=== PATIENT | male | born 1995 | race Caucasian/White ===

== ENCOUNTER 2024-08-23 21:58 | Emergency (ER) | payer MEDICAID ==
[~2024-08-23] VITALS: Ht 182.9 cm; Wt 105.6 kg
[2024-08-23 22:01] VITALS: BP 145/98; PULSE 102; RESP 15; O2SAT 99
[2024-08-23 22:51] LABS: MONOTEST NEGATIVE (Neg)
[2024-08-23 23:20] LABS: STREP A SCREEN POSITIVE (Neg)
[2024-08-23 23:38] VITALS: TEMP 98.9
[2024-08-24] MEDS: PENICILLIN G BENZATHINE 2,400,000 UNIT/4 ML SYRINGE IM ONE (00:34)
== END 2024-08-24 00:37 | disposition home or self-care (01) ==
LOC: ER 21:59
DX: J02.0 Streptococcal pharyngitis (principal)
CPT/HCPCS: 36415; 86308; 87880; 96372; 99283; J0561

== ENCOUNTER 2024-12-08 08:28 | Emergency (ER) | payer MEDICAID, OTHER ==
[~2024-12-08] VITALS: Ht 182.9 cm; Wt 136.4 kg
[2024-12-08 08:30] VITALS: TEMP 98.8
[2024-12-08] MEDS ORDERED: AMOX-117 PO (09:19)
[2024-12-08] MEDS ORDERED: LIDO20SO16 PO (09:19)
--- NOTE | 2024-12-08 09:19 | Physician Documentation ---
History of Present Illness ~ Chief Complaint: Sore Throat Stated Complaint: SORE THROAT Time Seen by MD: 09:12 Source: patient Mode of Arrival: POV Exam Limitations: no limitations HPI 29-year-old male with sore throat x2 days. Patient has pain with swallowing but no difficulty breathing. No fevers no other associated symptoms Medication Reconciliation Allergies: Coded Allergies: No Known Allergies (Unverified , 12/08/24) Scheduled Amox Tr/Potassium Clavulanate (Augmentin 875-125 Tablet), 1 TAB PO Q12H Lidocaine Hcl (Xylocaine Viscous), 5 ML PO Q2H PRN SORE THROAT Review of Systems All Other Systems at this time: Reviewed and Negative ENT: Reports: see HPI Physical Exam Vital Signs: RN Vital Signs have been reviewed: Yes, Temperature: 98.8, Source: Oral, Heart Rate: 91, Respiratory Rate: 18, BP: 148/84, Pulse Oximetry: 99, Weight: 136.360 Physical Exam General: Alert, no apparent distress. HEENT: PERRL, EOMI, no injection, moist mucous membranes. Pharyngeal erythema uvula swelling and erythema small white patches minimal tonsillar swelling. Anterior cervical lymphadenopathy Neck: Full range of motion. Respiratory: Lungs clear, no respiratory distress. Chest: No accessory muscle use. Cardiovascular: Regular rate and rhythm, no murmurs. Neurologic: Oriented x4. Psychiatric: Normal mood and affect. Skin: Normal color, warm and dry. No edema, no ecchymosis. Progress Results/Orders Results/Orders Vital Signs 12/08/24 12/08/24 08:30 09:55 Temp 98.8 Pulse 91 100 Resp 18 18 B/P (MAP) 148/84 135/94 Pulse Ox 99 98 Medical Decision Making Findings Sore throat x2 days, exudate erythema and adenopathy. 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
[2024-12-08 09:55] VITALS: BP 135/94; PULSE 100; RESP 18; O2SAT 98
== END 2024-12-08 10:00 | disposition home or self-care (01) ==
LOC: ER 08:28
DX: J02.0 Streptococcal pharyngitis (principal)
CPT/HCPCS: 99283

== ENCOUNTER 2025-05-09 00:28 | Emergency (ER) | payer OTHER ==
[~2025-05-09] VITALS: Ht 185.4 cm; Wt 127.0 kg
[~2025-05-09 00:28] MED LIST: LIDO20SO16 PO
[2025-05-09 00:33] VITALS: BP 121/89; PULSE 104; RESP 14; TEMP 98.2; O2SAT 97
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
== END 2025-05-09 03:55 ==
LOC: ER 00:28
DX: Z02.89 Encounter for other administrative examinations (principal); M25.562 Pain in left knee; M25.561 Pain in right knee; V49.9XXA Car occupant (driver) (passenger) injured in unspecified traffic accident, initial encounter; F17.200 Nicotine dependence, unspecified, uncomplicated; Z72.89 Other problems related to lifestyle; Z79.899 Other long term (current) drug therapy; Y92.89 Other specified places as the place of occurrence of the external cause; Y93.89 Activity, other specified; Y99.8 Other external cause status
CPT/HCPCS: 99283